=== PATIENT | female | born 1975 | race Caucasian/White ===

== ENCOUNTER 2022-08-23 08:03 | Outpatient (REF) | payer OTHER, SELFPAY ==
--- NOTE | ~2022-08-23 | MM_ITS ---
EXAMINATION: STEREOTACTIC TOMOSYNTHESIS-GUIDED VACUUM-ASSISTED BREAST BIOPSY (TWO SITES), RIGHT SPECIMEN RADIOGRAPHS (TWO SPECIMENS), RIGHT POST PROCEDURE DIGITAL MAMMOGRAM, RIGHT CLINICAL INFORMATION: Outside breast imaging demonstrates 2 areas of grouped calcifications upper outer right breast for tissue sampling. Prior history benign bilateral biopsies, including sclerosing adenosis. Family history postmenopausal breast cancer, mother. COMPARISON: Outside mammography from [facility]: 08/20/2022, 08/13/2022, 06/23/2021. TECHNIQUE/PROCEDURE: Informed consent was obtained from the patient after discussion of the benefits, risks, and alternatives to biopsy today. Patient appeared to understand. Gave opportunity for questions. Patient signed consent form. Specimen A: BIOPSY TABLE: Hologic Affirm Prone Biopsy System. LESION: Grouped calcifications approximately 1 cm AP length posterior upper outer right breast. LOCAL ANESTHESIA: 10 mL carbonated 1% lidocaine; 10 mL 1% lidocaine with epinephrine. DERMATOTOMY: Single skin megan dermatotomy performed. NEEDLE: Suros Eviva 9-gauge vacuum assisted core biopsy device. APPROACH: Craniocaudal. TARGETING: Combination of digital breast tomosynthesis and stereotactic digital mammography used for targeting. CORES: 12. CLIP: Suros SecurMark Cylinder-shaped marker. SPECIMEN RADIOGRAPH (A): Specimen radiograph is taken in separate room using digital mammography. The index calcifications are in the excised cores. There are over 12 calcifications in the cores. Specimen B: Fresh biopsy supplies are used for 2nd biopsy site. BIOPSY TABLE: AutoAlert[employer] Affirm Prone Biopsy System. LESION: Tightly grouped calcifications mid upper outer right breast approximately 0.5 cm AP length. LOCAL ANESTHESIA: 10 mL carbonated 1% lidocaine; 10 mL 1% lidocaine with epinephrine. DERMATOTOMY: Single skin megan dermatotomy performed. NEEDLE: Suros Eviva 9-gauge vacuum assisted core biopsy device. APPROACH: Craniocaudal. TARGETING: Combination of digital breast tomosynthesis and stereotactic digital mammography used for targeting. CORES: 9. CLIP: Suros SecurMark T-shaped marker. SPECIMEN RADIOGRAPH (B): Specimen radiograph is taken in separate room using digital mammography. The index calcifications are in the excised cores. There are scattered calcifications in the cores. POST PROCEDURE UNILATERAL DIGITAL MAMMOGRAM: The post biopsy mammogram is performed in separate room using separate digital mammography equipment from the biopsy procedure. CC and ML views are obtained. There are scattered areas of fibroglandular density (breast composition category: b). The new clip markers are in expected position. The calcifications are markedly decreased at both biopsy sites, no longer clearly visualized. No gross hematoma. The patient tolerated the procedure well. No immediate complications. Home instructions reviewed with the patient and her spouse. Final pathology results are pending. MM/MM stereotactic biopsy ea add IMPRESSION: 1. Digital tomosynthesis-guided core biopsy right breast with clip placement, 2 sites sampled. 2. Specimen radiographs taken and post procedure mammogram. There is satisfactory positioning of the biopsy clip markers. 3. Final pathology results pending. An addendum report will be issued.
--- NOTE | ~2022-08-23 | MM_ITS ---
EXAMINATION: STEREOTACTIC TOMOSYNTHESIS-GUIDED VACUUM-ASSISTED BREAST BIOPSY (TWO SITES), RIGHT SPECIMEN RADIOGRAPHS (TWO SPECIMENS), RIGHT POST PROCEDURE DIGITAL MAMMOGRAM, RIGHT CLINICAL INFORMATION: Outside breast imaging demonstrates 2 areas of grouped calcifications upper outer right breast for tissue sampling. Prior history benign bilateral biopsies, including sclerosing adenosis. Family history postmenopausal breast cancer, mother. COMPARISON: Outside mammography from [facility]: 08/20/2022, 08/13/2022, 06/23/2021. TECHNIQUE/PROCEDURE: Informed consent was obtained from the patient after discussion of the benefits, risks, and alternatives to biopsy today. Patient appeared to understand. Gave opportunity for questions. Patient signed consent form. Specimen A: BIOPSY TABLE: Hologic Affirm Prone Biopsy System. LESION: Grouped calcifications approximately 1 cm AP length posterior upper outer right breast. LOCAL ANESTHESIA: 10 mL carbonated 1% lidocaine; 10 mL 1% lidocaine with epinephrine. DERMATOTOMY: Single skin megan dermatotomy performed. NEEDLE: Suros Eviva 9-gauge vacuum assisted core biopsy device. APPROACH: Craniocaudal. TARGETING: Combination of digital breast tomosynthesis and stereotactic digital mammography used for targeting. CORES: 12. CLIP: Suros SecurMark Cylinder-shaped marker. SPECIMEN RADIOGRAPH (A): Specimen radiograph is taken in separate room using digital mammography. The index calcifications are in the excised cores. There are over 12 calcifications in the cores. Specimen B: Fresh biopsy supplies are used for 2nd biopsy site. BIOPSY TABLE: [employer] Affirm Prone Biopsy System. LESION: Tightly grouped calcifications mid upper outer right breast approximately 0.5 cm AP length. LOCAL ANESTHESIA: 10 mL carbonated 1% lidocaine; 10 mL 1% lidocaine with epinephrine. DERMATOTOMY: Single skin megan dermatotomy performed. NEEDLE: Suros Eviva 9-gauge vacuum assisted core biopsy device. APPROACH: Craniocaudal. TARGETING: Combination of digital breast tomosynthesis and stereotactic digital mammography used for targeting. CORES: 9. CLIP: Suros SecurMark T-shaped marker. SPECIMEN RADIOGRAPH (B): Specimen radiograph is taken in separate room using digital mammography. The index calcifications are in the excised cores. There are scattered calcifications in the cores. POST PROCEDURE UNILATERAL DIGITAL MAMMOGRAM: The post biopsy mammogram is performed in separate room using separate digital mammography equipment from the biopsy procedure. CC and ML views are obtained. There are scattered areas of fibroglandular density (breast composition category: b). The new clip markers are in expected position. The calcifications are markedly decreased at both biopsy sites, no longer clearly visualized. No gross hematoma. The patient tolerated the procedure well. No immediate complications. Home instructions reviewed with the patient and her spouse. Final pathology results are pending. MM/MM stereotactic biopsy ea add IMPRESSION: 1. Digital tomosynthesis-guided core biopsy right breast with clip placement, 2 sites sampled. 2. Specimen radiographs taken and post procedure mammogram. There is satisfactory positioning of the biopsy clip markers. 3. Final pathology results pending. An addendum report will be issued.
--- NOTE | ~2022-08-23 | MM_ITS ---
EXAMINATION: STEREOTACTIC TOMOSYNTHESIS-GUIDED VACUUM-ASSISTED BREAST BIOPSY (TWO SITES), RIGHT SPECIMEN RADIOGRAPHS (TWO SPECIMENS), RIGHT POST PROCEDURE DIGITAL MAMMOGRAM, RIGHT CLINICAL INFORMATION: Outside breast imaging demonstrates 2 areas of grouped calcifications upper outer right breast for tissue sampling. Prior history benign bilateral biopsies, including sclerosing adenosis. Family history postmenopausal breast cancer, mother. COMPARISON: Outside mammography from [facility]: 08/20/2022, 08/13/2022, 06/23/2021. TECHNIQUE/PROCEDURE: Informed consent was obtained from the patient after discussion of the benefits, risks, and alternatives to biopsy today. Patient appeared to understand. Gave opportunity for questions. Patient signed consent form. Specimen A: BIOPSY TABLE: Hologic Affirm Prone Biopsy System. LESION: Grouped calcifications approximately 1 cm AP length posterior upper outer right breast. LOCAL ANESTHESIA: 10 mL carbonated 1% lidocaine; 10 mL 1% lidocaine with epinephrine. DERMATOTOMY: Single skin megan dermatotomy performed. NEEDLE: Suros Eviva 9-gauge vacuum assisted core biopsy device. APPROACH: Craniocaudal. TARGETING: Combination of digital breast tomosynthesis and stereotactic digital mammography used for targeting. CORES: 12. CLIP: Suros SecurMark Cylinder-shaped marker. SPECIMEN RADIOGRAPH (A): Specimen radiograph is taken in separate room using digital mammography. The index calcifications are in the excised cores. There are over 12 calcifications in the cores. Specimen B: Fresh biopsy supplies are used for 2nd biopsy site. BIOPSY TABLE: [employer] Affirm Prone Biopsy System. LESION: Tightly grouped calcifications mid upper outer right breast approximately 0.5 cm AP length. LOCAL ANESTHESIA: 10 mL carbonated 1% lidocaine; 10 mL 1% lidocaine with epinephrine. DERMATOTOMY: Single skin megan dermatotomy performed. NEEDLE: Suros Eviva 9-gauge vacuum assisted core biopsy device. APPROACH: Craniocaudal. TARGETING: Combination of digital breast tomosynthesis and stereotactic digital mammography used for targeting. CORES: 9. CLIP: Suros SecurMark T-shaped marker. SPECIMEN RADIOGRAPH (B): Specimen radiograph is taken in separate room using digital mammography. The index calcifications are in the excised cores. There are scattered calcifications in the cores. POST PROCEDURE UNILATERAL DIGITAL MAMMOGRAM: The post biopsy mammogram is performed in separate room using separate digital mammography equipment from the biopsy procedure. CC and ML views are obtained. There are scattered areas of fibroglandular density (breast composition category: b). The new clip markers are in expected position. The calcifications are markedly decreased at both biopsy sites, no longer clearly visualized. No gross hematoma. The patient tolerated the procedure well. No immediate complications. Home instructions reviewed with the patient and her spouse. Final pathology results are pending. MM/MM stereotactic biopsy RT IMPRESSION: 1. Digital tomosynthesis-guided core biopsy right breast with clip placement, 2 sites sampled. 2. Specimen radiographs taken and post procedure mammogram. There is satisfactory positioning of the biopsy clip markers. 3. Final pathology results pending. An addendum report will be issued.
--- NOTE | ~2022-08-23 | MM_ITS ---
EXAMINATION: STEREOTACTIC TOMOSYNTHESIS-GUIDED VACUUM-ASSISTED BREAST BIOPSY (TWO SITES), RIGHT SPECIMEN RADIOGRAPHS (TWO SPECIMENS), RIGHT POST PROCEDURE DIGITAL MAMMOGRAM, RIGHT CLINICAL INFORMATION: Outside breast imaging demonstrates 2 areas of grouped calcifications upper outer right breast for tissue sampling. Prior history benign bilateral biopsies, including sclerosing adenosis. Family history postmenopausal breast cancer, mother. COMPARISON: Outside mammography from [facility]: 08/20/2022, 08/13/2022, 06/23/2021. TECHNIQUE/PROCEDURE: Informed consent was obtained from the patient after discussion of the benefits, risks, and alternatives to biopsy today. Patient appeared to understand. Gave opportunity for questions. Patient signed consent form. Specimen A: BIOPSY TABLE: Hologic Affirm Prone Biopsy System. LESION: Grouped calcifications approximately 1 cm AP length posterior upper outer right breast. LOCAL ANESTHESIA: 10 mL carbonated 1% lidocaine; 10 mL 1% lidocaine with epinephrine. DERMATOTOMY: Single skin megan dermatotomy performed. NEEDLE: Suros Eviva 9-gauge vacuum assisted core biopsy device. APPROACH: Craniocaudal. TARGETING: Combination of digital breast tomosynthesis and stereotactic digital mammography used for targeting. CORES: 12. CLIP: Suros SecurMark Cylinder-shaped marker. SPECIMEN RADIOGRAPH (A): Specimen radiograph is taken in separate room using digital mammography. The index calcifications are in the excised cores. There are over 12 calcifications in the cores. Specimen B: Fresh biopsy supplies are used for 2nd biopsy site. BIOPSY TABLE: [employer] Affirm Prone Biopsy System. LESION: Tightly grouped calcifications mid upper outer right breast approximately 0.5 cm AP length. LOCAL ANESTHESIA: 10 mL carbonated 1% lidocaine; 10 mL 1% lidocaine with epinephrine. DERMATOTOMY: Single skin megan dermatotomy performed. NEEDLE: Suros Eviva 9-gauge vacuum assisted core biopsy device. APPROACH: Craniocaudal. TARGETING: Combination of digital breast tomosynthesis and stereotactic digital mammography used for targeting. CORES: 9. CLIP: Suros SecurMark T-shaped marker. SPECIMEN RADIOGRAPH (B): Specimen radiograph is taken in separate room using digital mammography. The index calcifications are in the excised cores. There are scattered calcifications in the cores. POST PROCEDURE UNILATERAL DIGITAL MAMMOGRAM: The post biopsy mammogram is performed in separate room using separate digital mammography equipment from the biopsy procedure. CC and ML views are obtained. There are scattered areas of fibroglandular density (breast composition category: b). The new clip markers are in expected position. The calcifications are markedly decreased at both biopsy sites, no longer clearly visualized. No gross hematoma. The patient tolerated the procedure well. No immediate complications. Home instructions reviewed with the patient and her spouse. Final pathology results are pending. MM/MM stereotactic biopsy RT IMPRESSION: 1. Digital tomosynthesis-guided core biopsy right breast with clip placement, 2 sites sampled. 2. Specimen radiographs taken and post procedure mammogram. There is satisfactory positioning of the biopsy clip markers. 3. Final pathology results pending. An addendum report will be issued.
[2022-08-23] MEDS: Lidocaine HCl 1 % 20 ML VIAL SUBCUT (10:46)
[2022-08-23] MEDS: Lidocaine HCl 1%/Epi 1:100,000 10 ML VIAL 20 ML SUBCUT (10:48)
[2022-08-23] MEDS: Sodium Bicarbonate 8.4% 50 MEQ/50 ML VIAL SUBCUT (10:49)
== END 2022-08-23 08:04 | disposition home or self-care (01) ==
LOC: HO.MAMMO 08:03
PROVIDERS: PCP Internal Medicine; Visit Provider Physician Assistant Surgical
DX: R92.0 Mammographic microcalcification found on diagnostic imaging of breast (principal)
CPT/HCPCS: 19081; 19082; 88305; A4648